=== PATIENT | female | born 1945 | race Caucasian/White ===

== ENCOUNTER 2017-08-09 07:49 | Observation (INO) | payer MEDICARE ==
[~2017-08-09 07:49] MED LIST: Acetaminophen 1,000 MG in Premix Bag 1 BAG IV SCH; Famotidine 20 MG/2 ML SDV IVPUSH SCH; Ketorolac 30 MG/ML SDV IVPUSH SCH; Scopolamine 1.5 MG Transdermal Patch TRDERM SCH
[2017-08-09] MEDS ORDERED: ceFAZolin 2 GM in Premix Bag 1 BAG IV SCH (08:00)
[2017-08-09] MEDS ORDERED: Ropivacaine 49.25 ML, Ketorolac 30 MG, EPINEPHrine 0.5 MG, cloNIDine 80 MCG in Sodium C... INJECT SCH (08:00)
[2017-08-09] MEDS ORDERED: Tranexamic Acid 4,000 MG in Sodium Chloride 0.9% 100 ML IV SCH (08:00)
[2017-08-09] MEDS: oxyCODONE ER 10 MG TAB.ER PO SCH ×3 (08:15→20:14)
[2017-08-09] MEDS: Lactated Ringers 1,000 ML IV SCH ×2 (08:17→22:42)
--- NOTE | 2017-08-09 08:34 | PCM.PREANE ---
Preanesthetic Assessment - Anesthesia/Transfusion/Family Hx Anesthesia History: Prior Anesthesia Without Reaction Family History of Anesthesia Reaction: No Transfusion History: No Prior Transfusion(s) - Review of Systems General: No Symptoms Pulmonary: No Symptoms Cardiovascular: No Symptoms Gastrointestinal: No Symptoms Neurological: No Symptoms Other: Reports: None - Physical Assessment NPO Status Date: 08/08/17 Height: 1.68 m Weight: 90.718 kg ASA Class: 3 Mental Status: Alert & Oriented x3 Airway Class: Mallampati = 1 Dentition: Reports: Partial (upper) ROM/Head Extension: Full Lungs: Clear to Auscultation, Normal Respiratory Effort Cardiovascular: Regular Rate, Regular Rhythm - Allergies Allergies/Adverse Reactions: Allergies Allergy/AdvReac Type Severity Reaction Status Date / Time Tetanus Vaccines and Toxoid Allergy Paralysis Verified 08/05/17 10:25 - Anesthesia Plan Pre-Op Medication Ordered: Other (per surgeon: iv tylenol, toradol, scop patch, oxycontin, pepcid) - Acknowledgements Anesthesia Type Planned: Spinal Pt an Appropriate Candidate for the Planned Anesthesia: Yes Alternatives and Risks of Anesthesia Discussed w Pt/Guardian: Yes Pt/Guardian Understands and Agrees with Anesthesia Plan: Yes Additional Comments: PMH: hx of PVCs causing near syncope rxed with metopralol and flecanide. QTC = 476 on 07/19, normal echo and cardiac stress test both in 2016 PLAN: spinal with sedation. 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: Musculoskeletal History: Reports: Osteoarthritis Neurological History: Reports: Vertigo Endocrine/Metabolic History: Reports: Obesity/BMI 30+ - Past Surgical History Head Surgeries/Procedures: Reports: None HEENT Surgical History: Reports: Tonsillectomy Female Surgical History: Reports: Hysterectomy Other Female Surgeries/Procedures: hx TOVT Musculoskeletal Surgical History: Reports: Arthroscopic Knee, Other (See Below) Other Musculoskeletal Surgeries/Procedures:: removal of spur to foot - SUBSTANCE USE Smoking Status *Q: Former Smoker Tobacco Use Within Last Twelve Months: No Recreational Drug Use History: No - HOME MEDS Home Medications: Home Meds Ergocalciferol (Vitamin D2) [Vitamin D2] 50,000 units PO WEEKLY 08/05/17 [ History] Flecainide [Tambocor] 100 mg PO BID 08/05/17 [History] Hydrochlorothiazide 12.5 mg PO DAILY 08/05/17 [History] Hydrocodone/Acetaminophen [[place] 7.5-325 Tablet] 1 tab PO ASDIRECTED PRN [History] Metoprolol Succinate 50 mg PO DAILY 08/05/17 [History] Naproxen 1 tab PO BID 08/05/17 [History] Omeprazole 20 mg PO DAILY 08/05/17 [History] Vitamin B Complex 1 tab PO DAILY 08/05/17 [History] - CURRENT (IN HOUSE) MEDS Current Meds: Current Medications Famotidine (Pepcid) 40 mg IVPUSH ONARRIVE [facility] Last Admin: 08/09/17 08:16 Dose: 40 mg Acetaminophen 1,000 mg/ Premix 100 mls @ 400 mls/hr IV ONARRIVE [facility] Last Admin: 08/09/17 08:15 Dose: 400 mls/hr Cefazolin Sodium/Dextrose 2 gm (/ Premix) 50 mls @ 100 mls/hr IV ONCALL [facility] Ropivacaine 49.25 ml/Ketorolac Tromethamine 30 mg/Epinephrine HCl 0.5 mg/ Clonidine HCl 80 mcg/ Sodium Chloride 100 mls @ 50 mls/sec INJECT ASDIRECTED [facility] Lactated Ringer's (Ringers, Lactated) 1,000 mls @ 100 mls/hr IV ASDIRECTED [facility] Last Admin: 08/09/17 08:17 Dose: 100 mls/hr Tranexamic Acid 4,000 mg/ (Sodium Chloride) 140 mls @ 600 mls/hr IV ASDIRECTED [facility] Ketorolac Tromethamine (Toradol) 30 mg IVPUSH ONARRIVE [facility] Last Admin: 08/09/17 08:17 Dose: 30 mg Oxycodone HCl (Oxycontin) 10 mg PO ONARRIVE [facility] Last Admin: 08/09/17 08:15 Dose: 10 mg Scopolamine (Transderm-Scop) 1.5 mg TRDERM ONARRIVE [facility] Last Admin: 08/09/17 08:14 Dose: 1.5 mg
[2017-08-09] MEDS ORDERED: ceFAZolin/Dextrose,Iso-Osmotic 2 GM/50 ML Duplex Bag IV ONE (08:48)
[2017-08-09] MEDS ORDERED: Propofol 200 MG/20 ML SDV ONE ×2 (08:49→09:04)
[2017-08-09] MEDS ORDERED: fentaNYL 100 MCG/2 ML SDV ONE (08:49)
[2017-08-09] MEDS ORDERED: Midazolam 1 MG/ML 2 ML SDV ONE (08:50)
[2017-08-09] MEDS ORDERED: ePHEDrine 50 MG/ML SDV ONE (08:53)
[2017-08-09] MEDS ORDERED: Ondansetron 4 MG/2 ML SDV ONE (08:53)
[2017-08-09] MEDS ORDERED: HYDROmorphone 2 MG/ML SDV IVPUSH ONE (10:39)
[2017-08-09] MEDS ORDERED: fentaNYL 100 MCG/2 ML SDV IVPUSH PRN (10:39)
[2017-08-09] MEDS ORDERED: Ondansetron 4 MG/2 ML SDV IV PRN (11:41)
[2017-08-09] MEDS ORDERED: diphenhydrAMINE 25 MG Cap PO PRN (11:41)
[2017-08-09] MEDS ORDERED: HYDROmorphone/Normal Saline 6 MG/30 ML PCA Vial IV PRN (11:41)
[2017-08-09] MEDS ORDERED: Aluminum Hydroxide/Magnesium Hydroxide/Simethicone Susp 30 ML Cup PO PRN (11:41)
[2017-08-09] MEDS ORDERED: oxyCODONE 5 MG Tab PO PRN (11:41)
[2017-08-09] MEDS ORDERED: Bisacodyl 10 MG Supp RECTAL PRN (11:41)
--- NOTE | 2017-08-09 11:51 | PCM.OPNOTE ---
- General Post-Op/Procedure Note Date of Surgery/Procedure: 08/09/17 Operative Procedure(s): R TKA Post-Op Diagnosis: DJD R knee Anesthesia Technique: Moderate Sedation, Spinal Primary Surgeon: Izzy Elliott Technical Photographer: Carli Jang in mLs: 50 Condition: Good Free Text/Narrative:: tt=36 min #[id number] Intake & Output 08/08/17 08/09/17 08/09/17 22:59 06:59 14:59 Output Total 100 Balance -100
--- NOTE | 2017-08-09 12:40 | PCM48HPAN ---
Post Anesthesia Note - EVALUATION WITHIN 48HRS OF ANESTHETIC Vital Signs in Normal Range: Yes Patient Participated in Evaluation: Yes Respiratory Function Stable: Yes Airway Patent: Yes Cardiovascular Function Stable: Yes Hydration Status Stable: Yes Pain Control Satisfactory: Yes Nausea and Vomiting Control Satisfactory: Yes Mental Status Recovered: Yes Resp Rate: 12
--- NOTE | 2017-08-09 12:41 | PCM.POSTAN ---
POST ANESTHESIA ASSESSMENT - MENTAL STATUS Mental Status: Alert, Oriented - RESPIRATORY Respiratory Status: Respiratory Rate WNL, Airway Patent, O2 Saturation Stable - CARDIOVASCULAR CV Status: Pulse Rate WNL, Blood Pressure Stable - GASTROINTESTINAL GI Status: No Symptoms - POST OP HYDRATION Hydration Status: Adequate & Stable
[2017-08-09] MEDS: Acetaminophen 1,000 MG in Premix Bag 1 BAG IV SCH ×2 (13:33→18:16)
--- NOTE | 2017-08-09 13:52 | PCM.CONS ---
H&P History of Present Illness - General Date of Service: 08/09/17 Admit Problem/Dx: Admission Diagnosis/Problem Admission Diagnosis/Problem Replacement of total knee joint Source of Information: Patient, Old Records (Dr Boucher and PCP records reviewed. ) History Limitations: Reports: No Limitations - History of Present Illness Initial Comments - Free Text/Narative: This 72 year old female with pmh of HTN and PVCs presented to R TKA today with Dr Elliott. Hospitalist team consulted for medical management Salma reports she is doing well. She recently arrived to Med/Surg from PACU. She currently is pain free. She denies chest pain, SOB or palpitations. No nausea or vomiting. , Anderson at bedside. She reports she was diagnosed with PVCs maybe 1 year ago and placed on medication. She also had nuclear stress test and ECHO, which were negative. EF was normal and no valvular abnormalities noted. She reports she smoked for maybe 5 years in the 1970s but otherwise none since. She reports she does drink on a daily basis, 3-5 whiskey drinks in the evening. She denies waking up feeling shaky or feeling as if she needs a drink to make her feel better. She reports drinking this way for approximately 30 years. No recreational drug use. She denies DM. - Related Data Allergies/Adverse Reactions: Allergies Allergy/AdvReac Type Severity Reaction Status Date / Time Tetanus Vaccines and Toxoid Allergy Paralysis Verified 08/05/17 10:25 Home Medications: Home Meds Ergocalciferol (Vitamin D2) [Vitamin D2] 50,000 units PO WEEKLY 08/05/17 [ History] Flecainide [Tambocor] 100 mg PO BID 08/05/17 [History] Hydrochlorothiazide 12.5 mg PO DAILY 08/05/17 [History] Hydrocodone/Acetaminophen [[place] 7.5-325 Tablet] 1 tab PO ASDIRECTED PRN [History] Metoprolol Succinate 50 mg PO DAILY 08/05/17 [History] Naproxen 1 tab PO BID 08/05/17 [History] Omeprazole 20 mg PO DAILY 08/05/17 [History] Calcium Carbonate/Vitamin D3 [Calcium 600 + Vit D Tablet] 600 mg PO BID [History] Past Medical History HEENT History: Reports: Other (See Below) Other HEENT History: has upper partial Cardiovascular History: Reports: Arrhythmia, Hypertension. Denies: Blood Clots/ VTE/DVT, CAD, High Cholesterol Respiratory History: Reports: SOB (at baseline.) Gastrointestinal History: Reports: GERD Genitourinary History: Reports: None. 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 Denies: CVA, TIA Psychiatric History: Reports: Addiction (daily alcohol use) Endocrine/Metabolic History: Reports: Obesity/BMI 30+. Denies: Diabetes, Type II, Hypothyroidism - Past Surgical History Head Surgeries/Procedures: Reports: None HEENT Surgical History: Reports: Tonsillectomy Female Surgical History: Reports: Hysterectomy Other Female Surgeries/Procedures: hx TOVT Musculoskeletal Surgical History: Reports: Arthroscopic Knee, Other (See Below) Other Musculoskeletal Surgeries/Procedures:: removal of spur to foot Social & Family History - Tobacco Use Smoking Status *Q: Former Smoker Years of Tobacco use: 10 Used Tobacco, but Quit: Yes Month/Year Tobacco Last Used: quit smoking 1984 - Alcohol Use Alcohol Use History: Yes Days Per Week of Alcohol Use: 7 Number of Drinks Per Day: 5 Total Drinks Per Week: 35 Alcohol Use Frequency: Daily - Recreational Drug Use Recreational Drug Use: No - Living Situation & Occupation Living situation: Reports: H&P Review of Systems - Review of Systems: Review Of Systems: See Below General: Reports: No Symptoms. Denies: Fever, Chills, Malaise, Weakness HEENT: Reports: No Symptoms. Denies: Headaches, Sinus Congestion, Vertigo Pulmonary: Reports: No Symptoms. Denies: Shortness of Breath, Cough, Sputum Cardiovascular: Reports: No Symptoms. Denies: Chest Pain, Edema Gastrointestinal: Reports: No Symptoms. Denies: Abdominal Pain, Nausea, Vomiting Genitourinary: Reports: No Symptoms. Denies: Dysuria, Frequency, Burning Psychiatric: Reports: No Symptoms Hematologic/Lymphatic: Reports: No Symptoms Exam - Exam Exam: See Below - Vital Signs Vital Signs: Last Vital Signs Temp 97 F 08/09/17 13:29 Pulse 61 08/09/17 13:29 Resp 16 08/09/17 13:29 BP 134/70 08/09/17 13:29 Pulse Ox 97 08/09/17 13:29 Weight: 90.718 kg - Exam Quality Assessment: Supplemental Oxygen, Urinary Catheter, DVT Prophylaxis General: Alert, Oriented, Cooperative HEENT: Conjunctiva Clear, Mucosa Moist & [place], Posterior Pharynx Clear Neck: Supple, Trachea Midline, 2 Lungs: Clear to Auscultation, Normal Respiratory Effort Cardiovascular: Regular Rate, Regular Rhythm, Normal S1, Normal S2. No: Systolic Murmur GI/Abdominal Exam: Normal Bowel Sounds, Soft, Non-Tender, No Distention Back Exam: Normal Inspection, Full Range of Motion, NT Extremities: Normal Inspection, Normal Range of Motion, No Pedal Edema, Normal Capillary Refill Neuro Extensive - Mental Status: Alert, Oriented x3 Neuro Extensive - Motor, Sensory, Reflexes: CN II-XII Intact Psychiatric: Alert, Normal Affect, Normal Mood - Patient Data Lab Results Last 24 hrs: Laboratory Results - last 24 hr 08/09/17 Range/Units 08:30 Blood Type A POSITIVE Antibody Screen NEGATIVE Result Diagrams: 08/09/17 13:48 08/09/17 13:48 Consult PN Assessment/Plan Procedures: Procedures MRI JNT OF LWR EXTRE W/O DYE (07/06/17) OFFICE/OUTPATIENT VISIT NEW (06/22/17) X-RAY EXAM KNEE 4 OR MORE (06/22/17) (1) S/P total knee arthroplasty SNOMED Code(s): 8215462334423, 788431940, 7186693254624 Code(s): Z96.659 - PRESENCE OF UNSPECIFIED ARTIFICIAL KNEE JOINT Current Visit: Yes Qualifiers: Laterality: right Qualified Code(s): Z96.651 - Presence of right artificial knee joint (2) PVC (premature ventricular contraction) SNOMED Code(s): 71856253 Code(s): I49.3 - VENTRICULAR PREMATURE DEPOLARIZATION Current Visit: Yes (3) Alcohol use SNOMED Code(s): 152055194 Code(s): Z78.9 - OTHER SPECIFIED HEALTH STATUS Current Visit: Yes (4) GERD (gastroesophageal reflux disease) SNOMED Code(s): 843229265 Code(s): K21.9 - GASTRO-ESOPHAGEAL REFLUX DISEASE WITHOUT ESOPHAGITIS Current Visit: Yes Qualifiers: Esophagitis presence: esophagitis presence not specified Qualified Code(s) : K21.9 - Gastro-esophageal reflux disease without esophagitis Problem List Initiated/Reviewed/Updated: Yes My Orders Last 24 Hours: My Active Orders 08/09/17 13:29 BASIC METABOLIC PANEL,BMP [CHEM] Routine CBC WITH AUTO DIFF [HEME] Routine MG [MAGNESIUM] [CHEM] Routine 08/09/17 13:32 Telemetry Monitoring [Cardiac Monitoring] [RC] . DIRECTED Plan: this 72 joan old female admitted with R TKA. Hospitalist service consulted for medical management. 1. S/P R TKA: Per Orthopedics. 2. Hx PVCs: Continue Flecanide and Metoprolol. WIll monitor electrolytes and monitor on telemetry overnight. Will replace potassium and Magnesium this afternoon. BUN and Cr at baseline. Monitor in am as well. 3. Alcohol abuse: Will place on CIWA protocol with Ativan as needed alcohol withdrawl. Supplement with Thiamine and Folic acid daily. Encouraged her not to drink with pain medications or NSAIDs due to sedation risk and bleeding risks. VTE prophylaxis: Recommend with deemed appropriate by Orthopedics.
--- NOTE | 2017-08-09 14:43 | CR ---
EXAMINATION: Right knee HISTORY: Arthroplasty COMPARISON: 06/22/2017 TECHNIQUE: 2 views FINDINGS/IMPRESSION: Right total knee hardware demonstrated in good position and alignment. Postopera tive soft tissue changes noted.
[2017-08-09] MEDS ORDERED: Potassium Chloride 20 MEQ Tab.ER PO ONE (15:12)
[2017-08-09] MEDS ORDERED: Magnesium Sulfate/Water 2 GM in Premix Bag 1 BAG IV ONE (15:13)
[2017-08-09] MEDS ORDERED: LORazepam 2 MG/ML SDV IVPUSH PRN (15:47)
[2017-08-09] MEDS: Ketorolac 15 MG/ML SDV IVPUSH SCH ×2 (17:05→22:41)
[2017-08-09] MEDS: ceFAZolin 2 GM in Premix Bag 1 BAG IV SCH (17:16)
[2017-08-09] MEDS: Docusate Sodium 100 MG Cap PO SCH (20:12)
[2017-08-10] MEDS: ceFAZolin 2 GM in Premix Bag 1 BAG IV SCH (01:35)
[2017-08-10] MEDS: Acetaminophen 1,000 MG in Premix Bag 1 BAG IV SCH (01:37)
[2017-08-10] MEDS: Ketorolac 15 MG/ML SDV IVPUSH SCH (05:11)
[2017-08-10] MEDS ORDERED: HYDROmorphone 2 MG/ML SDV IVPUSH PRN (08:00)
[2017-08-10] MEDS: Omeprazole 20 MG Cap.CR PO SCH (08:30)
[2017-08-10] MEDS: Hydrochlorothiazide 12.5 MG Cap PO SCH (08:31)
[2017-08-10] MEDS: Aspirin 325 MG Tab.EC PO SCH ×2 (08:31→23:20)
[2017-08-10] MEDS: Docusate Sodium 100 MG Cap PO SCH ×2 (08:31→23:20)
[2017-08-10] MEDS: oxyCODONE ER 10 MG TAB.ER PO SCH (08:31)
[2017-08-10] MEDS: Metoprolol Succinate 50 MG Tab.ER PO SCH (08:32)
--- NOTE | 2017-08-10 08:37 | PCM.CONSN ---
- General Info Date of Service: 08/10/17 Admission Dx/Problem (Free Text): Admission Diagnosis/Problem Admission Diagnosis/Problem Replacement of total knee joint Subjective Update: DOing well this morning, pain controlled. No chest pain or SOB. Reports seeing a mindy in her room, but then realizing it was nursing staff. No other concerns. Functional Status: Reports: Pain Controlled, Tolerating Diet, Ambulating - Review of Systems General: Reports: No Symptoms. Denies: Fever, Weakness, Fatigue HEENT: Reports: No Symptoms. Denies: Headaches, Sore Throat, Visual Changes Pulmonary: Reports: No Symptoms. Denies: Shortness of Breath Cardiovascular: Reports: No Symptoms. Denies: Chest Pain Gastrointestinal: Reports: No Symptoms. Denies: Abdominal Pain, Flatus, Nausea , Vomiting Musculoskeletal: Reports: Joint Pain (Some knee pain but tolerable. ) Psychiatric: Reports: Hallucinations (easily redirected noticed them mainly last night when nursing staff was in room. ) - Patient Data Vitals - Most Recent: Last Vital Signs Temp 98.6 F 08/10/17 08:00 Pulse 71 08/10/17 08:32 Resp 17 08/10/17 08:00 BP 158/78 H 08/10/17 08:32 Pulse Ox 94 L 08/10/17 08:00 Weight - Most Recent: 90.718 kg I&O - Last 24 Hours: Intake & Output 08/09/17 08/10/17 08/10/17 22:59 06:59 14:59 Intake Total 2085 1300 Output Total 100 550 Balance 1985 750 Lab Results Last 24 Hours: Laboratory Results - last 24 hr 08/09/17 08/09/17 08/09/17 Range/Units 08:30 13:48 13:48 WBC 5.14 (4.0-11.0) K/uL RBC 3.66 L (4.30-5.90) M/uL Hgb 12.0 (12.0-16.0) g/dL Hct 36.2 (36.0-46.0) % MCV 98.9 H (80.0-98.0) fL MCH 32.8 H (27.0-32.0) pg MCHC 33.1 (31.0-37.0) g/dL RDW Std Deviation 47.5 (28.0-62.0) fl RDW Coeff of Jeff 13 (11.0-15.0) % Plt Count 182 (150-400) K/uL MPV 10.10 (7.40-12.00) fL Neut % (Auto) 65.4 (48.0-80.0) % Lymph % (Auto) 19.5 (16.0-40.0) % [place] % (Auto) 12.8 (0.0-15.0) % Eos % (Auto) 1.9 (0.0-7.0) % Baso % (Auto) 0.4 (0.0-1.5) % Neut # (Auto) 3.4 (1.4-5.7) K/uL Lymph # (Auto) 1.0 (0.6-2.4) K/uL [place] # (Auto) 0.7 (0.0-0.8) K/uL Eos # (Auto) 0.1 (0.0-0.7) K/uL Baso # (Auto) 0.0 (0.0-0.1) K/uL Nucleated RBC % 0.0 /100WBC Nucleated RBCs # 0 K/uL Sodium 139 (136-145) mmol/L Potassium 3.4 L (3.5-5.1) mmol/L Chloride 101 (98-107) mmol/L Carbon Dioxide 31.4 (21.0-32.0) mmol/L BUN 20 H (7.0-18.0) mg/dL Creatinine 1.2 H (0.6-1.0) mg/dL Est Cr Clr Drug Dosing 38.50 mL/min Estimated GFR (MDRD) 43.9 ml/min Glucose 123 H (74-106) mg/dL Calcium 8.4 L (8.5-10.1) mg/dL Magnesium 1.7 L (1.8-2.4) mg/dL Blood Type A POSITIVE Antibody Screen NEGATIVE 08/10/17 08/10/17 Range/Units 05:57 05:57 WBC (4.0-11.0) K/uL RBC (4.30-5.90) M/uL Hgb 11.1 L (12.0-16.0) g/dL Hct 33.7 L (36.0-46.0) % MCV (80.0-98.0) fL MCH (27.0-32.0) pg MCHC (31.0-37.0) g/dL RDW Std Deviation (28.0-62.0) fl RDW Coeff of Jeff (11.0-15.0) % Plt Count (150-400) K/uL MPV (7.40-12.00) fL Neut % (Auto) (48.0-80.0) % Lymph % (Auto) (16.0-40.0) % [place] % (Auto) (0.0-15.0) % Eos % (Auto) (0.0-7.0) % Baso % (Auto) (0.0-1.5) % Neut # (Auto) (1.4-5.7) K/uL Lymph # (Auto) (0.6-2.4) K/uL [place] # (Auto) (0.0-0.8) K/uL Eos # (Auto) (0.0-0.7) K/uL Baso # (Auto) (0.0-0.1) K/uL Nucleated RBC % /100WBC Nucleated RBCs # K/uL Sodium 138 (136-145) mmol/L Potassium 3.8 (3.5-5.1) mmol/L Chloride 103 (98-107) mmol/L Carbon Dioxide 29.9 (21.0-32.0) mmol/L BUN 18 (7.0-18.0) mg/dL Creatinine 1.3 H (0.6-1.0) mg/dL Est Cr Clr Drug Dosing 35.54 mL/min Estimated GFR (MDRD) 40.0 ml/min Glucose 114 H (74-106) mg/dL Calcium 8.1 L (8.5-10.1) mg/dL Magnesium 2.1 (1.8-2.4) mg/dL Blood Type Antibody Screen Med Orders - Current: Current Medications Al Hydroxide/Mg Hydroxide (Mag-Al Plus) 30 ml PO Q4H PRN PRN Reason: indigestion Aspirin (Ecotrin) 325 mg PO BID [facility] Last Admin: 08/10/17 08:31 Dose: 325 mg Bisacodyl (Dulcolax) 10 mg RECTAL DAILY PRN PRN Reason: Constipation Diphenhydramine HCl (Benadryl) 25 - 50 mg PO Q6H PRN PRN Reason: Itching Docusate Sodium (Colace) 100 mg PO BID [facility] Last Admin: 08/10/17 08:31 Dose: 100 mg Famotidine (Pepcid) 40 mg IVPUSH ONARRIVE [facility] Last Admin: 08/09/17 08:16 Dose: 40 mg Famotidine (Pepcid) 40 mg PO DAILY [facility] Last Admin: 08/10/17 08:30 Dose: 40 mg Fentanyl (Sublimaze) 50 mcg IVPUSH Q5M PRN PRN Reason: Pain (severe 7-10) Stop: 08/10/17 10:39 Hydrochlorothiazide (Hydrochlorothiazide) 12.5 mg PO DAILY [facility] Last Admin: 08/10/17 08:31 Dose: 12.5 mg Hydromorphone HCl (Dilaudid) 0.5 - 1 mg IVPUSH Q3H PRN PRN Reason: Pain Acetaminophen 1,000 mg/ Premix 100 mls @ 400 mls/hr IV ONARRIVE [facility] Last Admin: 08/09/17 08:15 Dose: 400 mls/hr Cefazolin Sodium/Dextrose 2 gm (/ Premix) 50 mls @ 100 mls/hr IV ONCALL [facility] Ropivacaine 49.25 ml/Ketorolac Tromethamine 30 mg/Epinephrine HCl 0.5 mg/ Clonidine HCl 80 mcg/ Sodium Chloride 100 mls @ 50 mls/sec INJECT ASDIRECTED [facility] Lactated Ringer's (Ringers, Lactated) 1,000 mls @ 100 mls/hr IV ASDIRECTED [facility] Last Admin: 08/09/17 22:42 Dose: 100 mls/hr Tranexamic Acid 4,000 mg/ (Sodium Chloride) 140 mls @ 600 mls/hr IV ASDIRECTED [facility] Ketorolac Tromethamine (Toradol) 30 mg IVPUSH ONARRIVE [facility] Last Admin: 08/09/17 08:17 Dose: 30 mg Lorazepam (Ativan) 0 mg IVPUSH Q4H PRN; Protocol PRN Reason: CIWAA Metoprolol Succinate (Toprol Xl) 50 mg PO DAILY [facility] Last Admin: 08/10/17 08:32 Dose: 50 mg Omeprazole (Omeprazole) 20 mg PO DAILY [facility] Last Admin: 08/10/17 08:30 Dose: 20 mg Ondansetron HCl (Zofran) 4 mg IV Q6HR PRN PRN Reason: NAUSEA/VOMITING Oxycodone HCl (Oxycontin) 10 mg PO ONARRIVE [facility] Last Admin: 08/09/17 08:15 Dose: 10 mg Oxycodone HCl (Oxycodone) 5 - 10 mg PO Q4H PRN PRN Reason: Pain Oxycodone HCl (Oxycontin) 10 mg PO Q12HR [facility] Last Admin: 08/10/17 08:31 Dose: 10 mg Oxycodone/Acetaminophen (Percocet 325-5 Mg) 1 - 2 tab PO Q4H PRN PRN Reason: Pain Scopolamine (Transderm-Scop) 1.5 mg TRDERM ONARRIVE [facility] Last Admin: 08/09/17 08:14 Dose: 1.5 mg Discontinued Medications Cefazolin Sodium/Dextrose (Ancef) Confirm Administered Dose 2 gm IV .STK-MED ONE Stop: 08/09/17 08:49 Ephedrine Sulfate (Ephedrine Sulfate) Confirm Administered Dose 50 mg .ROUTE .STK-MED ONE Stop: 08/09/17 08:54 Fentanyl (Sublimaze) Confirm Administered Dose 100 mcg .ROUTE .STK-MED ONE Stop: 08/09/17 08:50 Hydromorphone HCl (Dilaudid) 0 mg IVPUSH ONETIME ONE Stop: 08/09/17 10:40 Last Admin: 08/09/17 13:34 Dose: Not Given Hydromorphone HCl (Dilaudid Horticultural Nursery Assistant 6 Mg In Ns 30 Ml) 6 mg IV ASDIRECTED PRN; Protocol PRN Reason: Pain Stop: 08/10/17 08:00 Last Admin: 08/09/17 12:11 Dose: 6 mg Acetaminophen 1,000 mg/ Premix 100 mls @ 400 mls/hr IV Q6H [facility] Stop: 08/10/17 01:14 Last Admin: 08/10/17 01:37 Dose: 400 mls/hr Cefazolin Sodium/Dextrose 2 gm (/ Premix) 50 mls @ 100 mls/hr IV Q8H [facility] Stop: 08/10/17 01:29 Last Admin: 08/10/17 01:35 Dose: 100 mls/hr Magnesium Sulfate 2 gm/ Premix 50 mls @ 50 mls/hr IV ONETIME ONE Stop: 08/09/17 16:12 Last Admin: 08/09/17 15:30 Dose: 50 mls/hr Ketorolac Tromethamine (Toradol) 15 mg IVPUSH Q6H [facility] Stop: 08/10/17 05:00 Last Admin: 08/10/17 05:11 Dose: 15 mg Midazolam HCl (Versed 1 Mg/Ml) Confirm Administered Dose 2 mg .ROUTE .STK-MED ONE Stop: 08/09/17 08:51 Ondansetron HCl (Zofran) Confirm Administered Dose 4 mg .ROUTE .STK-MED ONE Stop: 08/09/17 08:54 Potassium Chloride (Klor-Con M20) 40 meq PO ONETIME ONE Stop: 08/09/17 15:13 Last Admin: 08/09/17 15:29 Dose: 40 meq Propofol (Diprivan 20 Ml) Confirm Administered Dose 400 mg .ROUTE .STK-MED ONE Stop: 08/09/17 08:50 Propofol (Diprivan 20 Ml) Confirm Administered Dose 200 mg .ROUTE .STK-MED ONE Stop: 08/09/17 09:05 Tranexamic Acid (Cyklokapron) Confirm Administered Dose 4,000 mg .ROUTE .STK- MED ONE Stop: 08/09/17 08:52 - Exam General: Alert, Oriented, Cooperative, No Acute Distress Lungs: Clear to Auscultation, Normal Respiratory Effort Cardiovascular: Regular Rate, Regular Rhythm GI/Abdominal Exam: Normal Bowel Sounds, Soft, Non-Tender, No Organomegaly, No Distention, No Abnormal Bruit, No Mass, Pelvis Stable Extremities: Normal Inspection, Normal Range of Motion, Non-Tender, No Pedal Edema, Normal Capillary Refill Wound/Incisions: Dressing Dry and Intact Neurological: No New Focal Deficit Psy/Mental Status: Alert, Normal Affect, Normal Mood Consult PN Assessment/Plan Procedures: Procedures MRI JNT OF LWR EXTRE W/O DYE (07/06/17) OFFICE/OUTPATIENT VISIT NEW (06/22/17) X-RAY EXAM KNEE 4 OR MORE (06/22/17) (1) S/P total knee arthroplasty SNOMED Code(s): 0162863053747, 635005691, 0455310741908 Code(s): Z96.659 - PRESENCE OF UNSPECIFIED ARTIFICIAL KNEE JOINT Current Visit: Yes Qualifiers: Laterality: right Qualified Code(s): Z96.651 - Presence of right artificial knee joint (2) PVC (premature ventricular contraction) SNOMED Code(s): 04280719 Code(s): I49.3 - VENTRICULAR PREMATURE DEPOLARIZATION Current Visit: Yes (3) Alcohol use SNOMED Code(s): 004472778 Code(s): Z78.9 - OTHER SPECIFIED HEALTH STATUS Current Visit: Yes (4) GERD (gastroesophageal reflux disease) SNOMED Code(s): 078555622 Code(s): K21.9 - GASTRO-ESOPHAGEAL REFLUX DISEASE WITHOUT ESOPHAGITIS Current Visit: Yes Qualifiers: Esophagitis presence: esophagitis presence not specified Qualified Code(s) : K21.9 - Gastro-esophageal reflux disease without esophagitis Problem List Initiated/Reviewed/Updated: Yes My Orders Last 24 Hours: My Active Orders 08/09/17 13:32 Telemetry Monitoring [Cardiac Monitoring] [RC] Q8H 08/09/17 15:47 CIWAA Assessment [RC] Q4H LORazepam [Ativan] See Protocol IVPUSH Q4H PRN 08/10/17 08:33 Rafter Cutting Machine Operator Discontinue [Cardiac Monitoring Discontinue] [RC] Click to Edit Plan: this 72 joan old female admitted with R TKA. Hospitalist service consulted for medical management. 1. S/P R TKA: Per Orthopedics. 2. Hx PVCs: Continue Flecanide and Metoprolol. Electrolytes stable. Will DC telemetry. No ectopy overnight. 3. Alcohol abuse: Stable. Max CIWA 3, no Ativan needed. Continue to monitor. CIWA protocol with Ativan as needed alcohol withdrawl. Supplement with Thiamine and Folic acid daily. VTE prophylaxis: Recommend with deemed appropriate by Orthopedics.
[2017-08-10] MEDS ORDERED: Famotidine 20 MG Tab PO SCH (09:00)
[2017-08-10] MEDS ORDERED: Sodium Chloride 0.9% 10 ML Syringe FLUSH PRN (09:18)
[2017-08-10] MEDS ORDERED: Sodium Chloride 0.9% 2.5 ML Syringe FLUSH PRN (09:18)
--- NOTE | 2017-08-10 09:23 | PCM.SURGPN ---
<Carli Jang R - Last Filed: 08/10/17 09:18> - General Info Date of Service: 08/10/17 Date of Surgery/Procedure: 08/09/17 POD#: 1 Functional Status: Reports: Pain Controlled - Review of Systems General: Reports: No Symptoms Pulmonary: Reports: No Symptoms. Denies: Shortness of Breath Cardiovascular: Reports: No Symptoms. Denies: Chest Pain, Palpitations Gastrointestinal: Reports: No Symptoms. Denies: Nausea, Vomiting Systems Review Comment:: pt up to chair for breakfast no specific concerns today pain controlled dressing was reinforced overnight - Patient Data Vitals - Most Recent: Last Vital Signs Temp 98.6 F 08/10/17 08:00 Pulse 71 08/10/17 08:32 Resp 17 08/10/17 08:00 BP 158/78 H 08/10/17 08:32 Pulse Ox 94 L 08/10/17 08:00 Weight - Most Recent: 90.718 kg I&O - Last 24 Hours: Intake & Output 08/09/17 08/10/17 08/10/17 22:59 06:59 14:59 Intake Total 2085 1300 Output Total 100 550 Balance 1985 750 Lab Results Last 24 Hrs: Laboratory Results - last 24 hr 08/09/17 08/09/17 08/09/17 Range/Units 08:30 13:48 13:48 WBC 5.14 (4.0-11.0) K/uL RBC 3.66 L (4.30-5.90) M/uL Hgb 12.0 (12.0-16.0) g/dL Hct 36.2 (36.0-46.0) % MCV 98.9 H (80.0-98.0) fL MCH 32.8 H (27.0-32.0) pg MCHC 33.1 (31.0-37.0) g/dL RDW Std Deviation 47.5 (28.0-62.0) fl RDW Coeff of Jeff 13 (11.0-15.0) % Plt Count 182 (150-400) K/uL MPV 10.10 (7.40-12.00) fL Neut % (Auto) 65.4 (48.0-80.0) % Lymph % (Auto) 19.5 (16.0-40.0) % [place] % (Auto) 12.8 (0.0-15.0) % Eos % (Auto) 1.9 (0.0-7.0) % Baso % (Auto) 0.4 (0.0-1.5) % Neut # (Auto) 3.4 (1.4-5.7) K/uL Lymph # (Auto) 1.0 (0.6-2.4) K/uL [place] # (Auto) 0.7 (0.0-0.8) K/uL Eos # (Auto) 0.1 (0.0-0.7) K/uL Baso # (Auto) 0.0 (0.0-0.1) K/uL Nucleated RBC % 0.0 /100WBC Nucleated RBCs # 0 K/uL Sodium 139 (136-145) mmol/L Potassium 3.4 L (3.5-5.1) mmol/L Chloride 101 (98-107) mmol/L Carbon Dioxide 31.4 (21.0-32.0) mmol/L BUN 20 H (7.0-18.0) mg/dL Creatinine 1.2 H (0.6-1.0) mg/dL Est Cr Clr Drug Dosing 38.50 mL/min Estimated GFR (MDRD) 43.9 ml/min Glucose 123 H (74-106) mg/dL Calcium 8.4 L (8.5-10.1) mg/dL Magnesium 1.7 L (1.8-2.4) mg/dL Blood Type A POSITIVE Antibody Screen NEGATIVE 08/10/17 08/10/17 Range/Units 05:57 05:57 WBC (4.0-11.0) K/uL RBC (4.30-5.90) M/uL Hgb 11.1 L (12.0-16.0) g/dL Hct 33.7 L (36.0-46.0) % MCV (80.0-98.0) fL MCH (27.0-32.0) pg MCHC (31.0-37.0) g/dL RDW Std Deviation (28.0-62.0) fl RDW Coeff of Jeff (11.0-15.0) % Plt Count (150-400) K/uL MPV (7.40-12.00) fL Neut % (Auto) (48.0-80.0) % Lymph % (Auto) (16.0-40.0) % [place] % (Auto) (0.0-15.0) % Eos % (Auto) (0.0-7.0) % Baso % (Auto) (0.0-1.5) % Neut # (Auto) (1.4-5.7) K/uL Lymph # (Auto) (0.6-2.4) K/uL [place] # (Auto) (0.0-0.8) K/uL Eos # (Auto) (0.0-0.7) K/uL Baso # (Auto) (0.0-0.1) K/uL Nucleated RBC % /100WBC Nucleated RBCs # K/uL Sodium 138 (136-145) mmol/L Potassium 3.8 (3.5-5.1) mmol/L Chloride 103 (98-107) mmol/L Carbon Dioxide 29.9 (21.0-32.0) mmol/L BUN 18 (7.0-18.0) mg/dL Creatinine 1.3 H (0.6-1.0) mg/dL Est Cr Clr Drug Dosing 35.54 mL/min Estimated GFR (MDRD) 40.0 ml/min Glucose 114 H (74-106) mg/dL Calcium 8.1 L (8.5-10.1) mg/dL Magnesium 2.1 (1.8-2.4) mg/dL Blood Type Antibody Screen Med Orders - Current: Current Medications Al Hydroxide/Mg Hydroxide (Mag-Al Plus) 30 ml PO Q4H PRN PRN Reason: indigestion Aspirin (Ecotrin) 325 mg PO BID [facility] Last Admin: 08/10/17 08:31 Dose: 325 mg Bisacodyl (Dulcolax) 10 mg RECTAL DAILY PRN PRN Reason: Constipation Diphenhydramine HCl (Benadryl) 25 - 50 mg PO Q6H PRN PRN Reason: Itching Docusate Sodium (Colace) 100 mg PO BID [facility] Last Admin: 08/10/17 08:31 Dose: 100 mg Famotidine (Pepcid) 40 mg IVPUSH ONARRIVE [facility] Last Admin: 08/09/17 08:16 Dose: 40 mg Famotidine (Pepcid) 40 mg PO DAILY [facility] Last Admin: 08/10/17 08:30 Dose: 40 mg Fentanyl (Sublimaze) 50 mcg IVPUSH Q5M PRN PRN Reason: Pain (severe 7-10) Stop: 08/10/17 10:39 Hydrochlorothiazide (Hydrochlorothiazide) 12.5 mg PO DAILY [facility] Last Admin: 08/10/17 08:31 Dose: 12.5 mg Hydromorphone HCl (Dilaudid) 0.5 - 1 mg IVPUSH Q3H PRN PRN Reason: Pain Cefazolin Sodium/Dextrose 2 gm (/ Premix) 50 mls @ 100 mls/hr IV ONCALL [facility] Ropivacaine 49.25 ml/Ketorolac Tromethamine 30 mg/Epinephrine HCl 0.5 mg/ Clonidine HCl 80 mcg/ Sodium Chloride 100 mls @ 50 mls/sec INJECT ASDIRECTED [facility] Lactated Ringer's (Ringers, Lactated) 1,000 mls @ 100 mls/hr IV ASDIRECTED [facility] Last Admin: 08/09/17 22:42 Dose: 100 mls/hr Tranexamic Acid 4,000 mg/ (Sodium Chloride) 140 mls @ 600 mls/hr IV ASDIRECTED [facility] Ketorolac Tromethamine (Toradol) 30 mg IVPUSH ONARRIVE [facility] Last Admin: 08/09/17 08:17 Dose: 30 mg Lorazepam (Ativan) 0 mg IVPUSH Q4H PRN; Protocol PRN Reason: CIWAA Metoprolol Succinate (Toprol Xl) 50 mg PO DAILY [facility] Last Admin: 08/10/17 08:32 Dose: 50 mg Omeprazole (Omeprazole) 20 mg PO DAILY [facility] Last Admin: 08/10/17 08:30 Dose: 20 mg Ondansetron HCl (Zofran) 4 mg IV Q6HR PRN PRN Reason: NAUSEA/VOMITING Oxycodone HCl (Oxycontin) 10 mg PO ONARRIVE [facility] Last Admin: 08/09/17 08:15 Dose: 10 mg Oxycodone HCl (Oxycodone) 5 - 10 mg PO Q4H PRN PRN Reason: Pain Oxycodone HCl (Oxycontin) 10 mg PO Q12HR [facility] Last Admin: 08/10/17 08:31 Dose: 10 mg Oxycodone/Acetaminophen (Percocet 325-5 Mg) 1 - 2 tab PO Q4H PRN PRN Reason: Pain Scopolamine (Transderm-Scop) 1.5 mg [facility] ONARRIVE [facility] Last Admin: 08/09/17 08:14 Dose: 1.5 mg Discontinued Medications Cefazolin Sodium/Dextrose (Ancef) Confirm Administered Dose 2 gm IV .STK-MED ONE Stop: 08/09/17 08:49 Ephedrine Sulfate (Ephedrine Sulfate) Confirm Administered Dose 50 mg .ROUTE .STK-MED ONE Stop: 08/09/17 08:54 Fentanyl (Sublimaze) Confirm Administered Dose 100 mcg .ROUTE .STK-MED ONE Stop: 08/09/17 08:50 Hydromorphone HCl (Dilaudid) 0 mg IVPUSH ONETIME ONE Stop: 08/09/17 10:40 Last Admin: 08/09/17 13:34 Dose: Not Given Hydromorphone HCl (Dilaudid Lumber Racker 6 Mg In Ns 30 Ml) 6 mg IV ASDIRECTED PRN; Protocol PRN Reason: Pain Stop: 08/10/17 08:00 Last Admin: 08/09/17 12:11 Dose: 6 mg Acetaminophen 1,000 mg/ Premix 100 mls @ 400 mls/hr IV ONARRIVE [facility] Last Admin: 08/09/17 08:15 Dose: 400 mls/hr Acetaminophen 1,000 mg/ Premix 100 mls @ 400 mls/hr IV Q6H [facility] Stop: 08/10/17 01:14 Last Admin: 08/10/17 01:37 Dose: 400 mls/hr Cefazolin Sodium/Dextrose 2 gm (/ Premix) 50 mls @ 100 mls/hr IV Q8H [facility] Stop: 08/10/17 01:29 Last Admin: 08/10/17 01:35 Dose: 100 mls/hr Magnesium Sulfate 2 gm/ Premix 50 mls @ 50 mls/hr IV ONETIME ONE Stop: 08/09/17 16:12 Last Admin: 08/09/17 15:30 Dose: 50 mls/hr Ketorolac Tromethamine (Toradol) 15 mg IVPUSH Q6H [facility] Stop: 08/10/17 05:00 Last Admin: 08/10/17 05:11 Dose: 15 mg Midazolam HCl (Versed 1 Mg/Ml) Confirm Administered Dose 2 mg .ROUTE .STK-MED ONE Stop: 08/09/17 08:51 Ondansetron HCl (Zofran) Confirm Administered Dose 4 mg .ROUTE .STK-MED ONE Stop: 08/09/17 08:54 Potassium Chloride (Klor-Con M20) 40 meq PO ONETIME ONE Stop: 08/09/17 15:13 Last Admin: 08/09/17 15:29 Dose: 40 meq Propofol (Diprivan 20 Ml) Confirm Administered Dose 400 mg .ROUTE .STK-MED ONE Stop: 08/09/17 08:50 Propofol (Diprivan 20 Ml) Confirm Administered Dose 200 mg .ROUTE .STK-MED ONE Stop: 08/09/17 09:05 Tranexamic Acid (Cyklokapron) Confirm Administered Dose 4,000 mg .ROUTE .STK- MED ONE Stop: 08/09/17 08:52 - Exam Wound/Incisions: Healing Well, Drainage (sanguinous drainage from inferior aspect of wound). No: Erythema General: Alert, Oriented Cardiovascular: Regular Rate, Regular Rhythm Extremities: No Pedal Edema, Other (exam RLE - incision clean/jolynn intact/ sanguinous drainage from inferior wound, at/ehl/gastroc 5/5, dp 2+, sensation intact distally) Physical Findings Comment:: vss, afeb uo 820mL hgb 11.1 - Problem List Review Problem List Initiated/Reviewed/Updated: Yes - My Orders Last 24 Hours: Active Orders 24 hr Category Date Time Status Activity as Tolerated [RC] .Routine Care 08/09/17 11:41 Active CIWAA Assessment [RC] Q4H Care 08/09/17 15:47 Active Dressing Change [Wound Care] [RC] Q12H Care 08/09/17 11:41 Active Intake and Output [RC] Q12H Care 08/09/17 11:40 Active Neurovascular Check [RC] Q2HR Care 08/09/17 11:40 Active Notify Provider Consults [RC] ASDIRECTED Care 08/09/17 11:48 Active Notify Provider Vital Signs [RC] ASDIRECTED Care 08/09/17 11:41 Active RT Incentive Spirometry [RC] ASDIRECTED Care 08/09/17 11:40 Active Remove Woodall Catheter [Urinary Catheter Removal] [RC] Care 08/10/17 09:18 Ordered Per Unit Routine Dental Hygiene Professor Discontinue [Cardiac Monitoring Care 08/10/17 08:33 Active Discontinue] [RC] Click to Edit Telemetry Monitoring [Cardiac Monitoring] [RC] Q8H Care 08/09/17 13:32 Active Vital Signs [RC] Q4H Care 08/09/17 11:40 Active Consult to Physician [CONS] Routine Cons 08/09/17 11:39 Active PT Evaluation and Treatment [CONS] Routine Cons 08/09/17 15:34 Active HEMOGLOBIN/HEMATOCRIT,HH [HEME] DAILY Lab 08/11/17 06:00 Ordered HEMOGLOBIN/HEMATOCRIT,HH [HEME] DAILY Lab 08/12/17 06:00 Ordered Acetaminophen/oxyCODONE [Percocet 325-5 MG] Med 08/10/17 08:00 Active 1 - 2 tab PO Q4H PRN Alum Hydrox/Mag Hydrox/Simeth [Mag-Al Plus] Med 08/09/17 11:41 Active 30 ml PO Q4H PRN Aspirin [Ecotrin] Med 08/10/17 09:00 Active 325 mg PO BID Bisacodyl [Dulcolax] Med 08/09/17 11:41 Active 10 mg RECTAL DAILY PRN Docusate Sodium [Colace] Med 08/09/17 21:00 Active 100 mg PO BID Famotidine [Pepcid] Med 08/10/17 09:00 Active 40 mg PO DAILY HYDROmorphone [Dilaudid] Med 08/10/17 08:00 Active 0.5 - 1 mg IVPUSH Q3H PRN Hydrochlorothiazide Med 08/10/17 09:00 Active 12.5 mg PO DAILY LORazepam [Ativan] Med 08/09/17 15:47 Active See Protocol IVPUSH Q4H PRN Metoprolol Succinate [Toprol XL] Med 08/10/17 09:00 Active 50 mg PO DAILY Omeprazole Med 08/10/17 09:00 Active 20 mg PO DAILY Ondansetron [Zofran] Med 08/09/17 11:41 Active 4 mg IV Q6HR PRN Sodium Chloride 0.9% [Saline Flush] Med 08/10/17 09:18 Ordered 10 ml FLUSH ASDIRECTED PRN Sodium Chloride 0.9% [Saline Flush] Med 08/10/17 09:18 Ordered 2.5 ml FLUSH ASDIRECTED PRN diphenhydrAMINE [Benadryl] Med 08/09/17 11:41 Active 25 - 50 mg PO Q6H PRN fentaNYL [Sublimaze] Med 08/09/17 10:39 Active 50 mcg IVPUSH Q5M PRN oxyCODONE Med 08/09/17 11:41 Active 5 - 10 mg PO Q4H PRN oxyCODONE ER [OxyCONTIN] Med 08/09/17 21:00 Active 10 mg PO Q12HR Convert IV to Saline Lock [OM.PC] Routine Oth 08/10/17 09:18 Ordered Ice Therapy [OM.PC] Routine Oth 08/09/17 11:40 Ordered Medication Orders Al Hydroxide/Mg Hydroxide (Mag-Al Plus) 30 ml PO Q4H PRN PRN Reason: indigestion Aspirin (Ecotrin) 325 mg PO BID [facility] Last Admin: 08/10/17 08:31 Dose: 325 mg Bisacodyl (Dulcolax) 10 mg RECTAL DAILY PRN PRN Reason: Constipation Diphenhydramine HCl (Benadryl) 25 - 50 mg PO Q6H PRN PRN Reason: Itching Docusate Sodium (Colace) 100 mg PO BID [facility] Last Admin: 08/10/17 08:31 Dose: 100 mg Admin: 08/09/17 20:12 Dose: 100 mg Famotidine (Pepcid) 40 mg IVPUSH ONARRIVE [facility] Last Admin: 08/09/17 08:16 Dose: 40 mg Famotidine (Pepcid) 40 mg PO DAILY [facility] Last Admin: 08/10/17 08:30 Dose: 40 mg Fentanyl (Sublimaze) 50 mcg IVPUSH Q5M PRN PRN Reason: Pain (severe 7-10) Stop: 08/10/17 10:39 Hydrochlorothiazide (Hydrochlorothiazide) 12.5 mg PO DAILY [facility] Last Admin: 08/10/17 08:31 Dose: 12.5 mg Hydromorphone HCl (Dilaudid) 0.5 - 1 mg IVPUSH Q3H PRN PRN Reason: Pain Cefazolin Sodium/Dextrose 2 gm (/ Premix) 50 mls @ 100 mls/hr IV ONCALL [facility] Ropivacaine 49.25 ml/Ketorolac Tromethamine 30 mg/Epinephrine HCl 0.5 mg/ Clonidine HCl 80 mcg/ Sodium Chloride 100 mls @ 50 mls/sec INJECT ASDIRECTED [facility] Lactated Ringer's (Ringers, Lactated) 1,000 mls @ 100 mls/hr IV ASDIRECTED [facility] Last Admin: 08/09/17 22:42 Dose: 100 mls/hr Infusion: 08/09/17 18:17 Dose: 100 mls/hr Admin: 08/09/17 08:17 Dose: 100 mls/hr Tranexamic Acid 4,000 mg/ (Sodium Chloride) 140 mls @ 600 mls/hr IV ASDIRECTED [facility] Ketorolac Tromethamine (Toradol) 30 mg IVPUSH ONARRIVE [facility] Last Admin: 08/09/17 08:17 Dose: 30 mg Lorazepam (Ativan) 0 mg IVPUSH Q4H PRN; Protocol PRN Reason: CIWAA Metoprolol Succinate (Toprol Xl) 50 mg PO DAILY [facility] Last Admin: 08/10/17 08:32 Dose: 50 mg Omeprazole (Omeprazole) 20 mg PO DAILY [facility] Last Admin: 08/10/17 08:30 Dose: 20 mg Ondansetron HCl (Zofran) 4 mg IV Q6HR PRN PRN Reason: NAUSEA/VOMITING Oxycodone HCl (Oxycontin) 10 mg PO ONARRIVE [facility] Last Admin: 08/09/17 08:15 Dose: 10 mg Oxycodone HCl (Oxycodone) 5 - 10 mg PO Q4H PRN PRN Reason: Pain Oxycodone HCl (Oxycontin) 10 mg PO Q12HR [facility] Last Admin: 08/10/17 08:31 Dose: 10 mg Admin: 08/09/17 20:14 Dose: 10 mg Oxycodone/Acetaminophen (Percocet 325-5 Mg) 1 - 2 tab PO Q4H PRN PRN Reason: Pain Scopolamine (Transderm-Scop) 1.5 mg TRDERM ONARRIVE [facility] Last Admin: 08/09/17 08:14 Dose: 1.5 mg - Assessment Assessment (Free Text/Narrative):: POD#1 R TKA acute posthemorrhagic anemia - Plan Plan (Free Text/Narrative):: DC IV fluids - saline lock IV DC woodall DC 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 CONTROL COORDINATOR - dilaudid IV prn breakthrough pain DC oxycodone - percocet 5/325 prn available ASA 325mg PO BID as DVT prophylaxis PT today dressing changed pt has wheeled walker or script has been written if pt does well with PT, pain is controlled, may d/ch to home this afternoon, more likely tomorrow for continued PT/gait stability d/ch medications written <Izzy Elliott R - Last Filed: 08/11/17 09:12> - Patient Data Vitals - Most Recent: Last Vital Signs Temp 98.3 F 08/11/17 08:00 Pulse 82 08/11/17 08:00 Resp 18 08/11/17 08:00 BP 140/80 08/11/17 08:00 Pulse Ox 95 08/11/17 08:00 I&O - Last 24 Hours: Intake & Output 08/10/17 08/11/17 08/11/17 22:59 06:59 14:59 Intake Total 500 600 Output Total 300 350 Balance 200 250 Lab Results Last 24 Hrs: Laboratory Results - last 24 hr 08/11/17 08/11/17 Range/Units 05:35 05:35 Hgb 10.2 L (12.0-16.0) g/dL Hct 31.6 L (36.0-46.0) % Sodium 137 (136-145) mmol/L Potassium 4.3 (3.5-5.1) mmol/L Chloride 103 (98-107) mmol/L Carbon Dioxide 30.8 (21.0-32.0) mmol/L BUN 19 H (7.0-18.0) mg/dL Creatinine 1.1 H (0.6-1.0) mg/dL Est Cr Clr Drug Dosing 42.00 mL/min Estimated GFR (MDRD) 48.6 ml/min Glucose 120 H (74-106) mg/dL Calcium 8.3 L (8.5-10.1) mg/dL Med Orders - Current: Current Medications Hydrocodone Bitart/Acetaminophen (Lithia 325-10 Mg) 1 - 2 tab PO Q4H PRN PRN Reason: Pain Last Admin: 08/11/17 04:52 Dose: 2 tab Al Hydroxide/Mg Hydroxide (Mag-Al Plus) 30 ml PO Q4H PRN PRN Reason: indigestion Aspirin (Ecotrin) 325 mg PO BID [facility] Last Admin: 08/10/17 23:20 Dose: 325 mg Bisacodyl (Dulcolax) 10 mg RECTAL DAILY PRN PRN Reason: Constipation Diphenhydramine HCl (Benadryl) 25 - 50 mg PO Q6H PRN PRN Reason: Itching Docusate Sodium (Colace) 100 mg PO BID [facility] Last Admin: 08/10/17 23:20 Dose: 100 mg Hydrochlorothiazide (Hydrochlorothiazide) 12.5 mg PO DAILY [facility] Last Admin: 08/10/17 08:31 Dose: 12.5 mg Hydromorphone HCl (Dilaudid) 0.5 - 1 mg IVPUSH Q3H PRN PRN Reason: Pain Lactated Ringer's (Ringers, Lactated) 1,000 mls @ 100 mls/hr IV ASDIRECTED [facility] Last Admin: 08/09/17 22:42 Dose: 100 mls/hr Lorazepam (Ativan) 0 mg IVPUSH Q4H PRN; Protocol PRN Reason: CIWAA Metoprolol Succinate (Toprol Xl) 50 mg PO DAILY [facility] Last Admin: 08/10/17 08:32 Dose: 50 mg Omeprazole (Omeprazole) 20 mg PO DAILY [facility] Last Admin: 08/10/17 08:30 Dose: 20 mg Ondansetron HCl (Zofran) 4 mg IVPUSH Q6H PRN PRN Reason: NAUSEA/VOMITING Sodium Chloride (Saline Flush) 10 ml FLUSH ASDIRECTED PRN PRN Reason: Keep Vein Open Sodium Chloride (Saline Flush) 2.5 ml FLUSH ASDIRECTED PRN PRN Reason: Keep Vein Open Discontinued Medications Cefazolin Sodium/Dextrose (Ancef) Confirm Administered Dose 2 gm IV .STK-MED ONE Stop: 08/09/17 08:49 Ephedrine Sulfate (Ephedrine Sulfate) Confirm Administered Dose 50 mg .ROUTE .STK-MED ONE Stop: 08/09/17 08:54 Famotidine (Pepcid) 40 mg IVPUSH ONARRIVE [facility] Last Admin: 08/09/17 08:16 Dose: 40 mg Famotidine (Pepcid) 40 mg PO DAILY [facility] Last Admin: 08/10/17 08:30 Dose: 40 mg Fentanyl (Sublimaze) Confirm Administered Dose 100 mcg .ROUTE .STK-MED ONE Stop: 08/09/17 08:50 Fentanyl (Sublimaze) 50 mcg IVPUSH Q5M PRN PRN Reason: Pain (severe 7-10) Stop: 08/10/17 10:39 Hydromorphone HCl (Dilaudid) 0 mg IVPUSH ONETIME ONE Stop: 08/09/17 10:40 Last Admin: 08/09/17 13:34 Dose: Not Given Hydromorphone HCl (Dilaudid Lumber Racker 6 Mg In Ns 30 Ml) 6 mg IV ASDIRECTED PRN; Protocol PRN Reason: Pain Stop: 08/10/17 08:00 Last Admin: 08/09/17 12:11 Dose: 6 mg Acetaminophen 1,000 mg/ Premix 100 mls @ 400 mls/hr IV ONARRIVE [facility] Last Admin: 08/09/17 08:15 Dose: 400 mls/hr Cefazolin Sodium/Dextrose 2 gm (/ Premix) 50 mls @ 100 mls/hr IV ONCALL [facility] Ropivacaine 49.25 ml/Ketorolac Tromethamine 30 mg/Epinephrine HCl 0.5 mg/ Clonidine HCl 80 mcg/ Sodium Chloride 100 mls @ 50 mls/sec INJECT ASDIRECTED [facility] Tranexamic Acid 4,000 mg/ (Sodium Chloride) 140 mls @ 600 mls/hr IV ASDIRECTED [facility] Acetaminophen 1,000 mg/ Premix 100 mls @ 400 mls/hr IV Q6H [facility] Stop: 08/10/17 01:14 Last Admin: 08/10/17 01:37 Dose: 400 mls/hr Cefazolin Sodium/Dextrose 2 gm (/ Premix) 50 mls @ 100 mls/hr IV Q8H [facility] Stop: 08/10/17 01:29 Last Admin: 08/10/17 01:35 Dose: 100 mls/hr Magnesium Sulfate 2 gm/ Premix 50 mls @ 50 mls/hr IV ONETIME ONE Stop: 08/09/17 16:12 Last Admin: 08/09/17 15:30 Dose: 50 mls/hr Ketorolac Tromethamine (Toradol) 30 mg IVPUSH ONARRIVE [facility] Last Admin: 08/09/17 08:17 Dose: 30 mg Ketorolac Tromethamine (Toradol) 15 mg IVPUSH Q6H [facility] Stop: 08/10/17 05:00 Last Admin: 08/10/17 05:11 Dose: 15 mg Midazolam HCl (Versed 1 Mg/Ml) Confirm Administered Dose 2 mg .ROUTE .STK-MED ONE Stop: 08/09/17 08:51 Ondansetron HCl (Zofran) Confirm Administered Dose 4 mg .ROUTE .STK-MED ONE Stop: 08/09/17 08:54 Ondansetron HCl (Zofran) 4 mg IV Q6HR PRN PRN Reason: NAUSEA/VOMITING Oxycodone HCl (Oxycontin) 10 mg PO ONARRIVE [facility] Last Admin: 08/09/17 08:15 Dose: 10 mg Oxycodone HCl (Oxycodone) 5 - 10 mg PO Q4H PRN PRN Reason: Pain Oxycodone HCl (Oxycontin) 10 mg PO Q12HR [facility] Last Admin: 08/10/17 08:31 Dose: 10 mg Oxycodone/Acetaminophen (Percocet 325-5 Mg) 1 - 2 tab PO Q4H PRN PRN Reason: Pain Last Admin: 08/10/17 15:04 Dose: 2 tab Potassium Chloride (Klor-Con M20) 40 meq PO ONETIME ONE Stop: 08/09/17 15:13 Last Admin: 08/09/17 15:29 Dose: 40 meq Propofol (Diprivan 20 Ml) Confirm Administered Dose 400 mg .ROUTE .STK-MED ONE Stop: 08/09/17 08:50 Propofol (Diprivan 20 Ml) Confirm Administered Dose 200 mg .ROUTE .STK-MED ONE Stop: 08/09/17 09:05 [facility] Admin: 08/09/17 08:14 Dose: 1.5 mg Tranexamic Acid (Cyklokapron) Confirm Administered Dose 4,000 mg .ROUTE .STK- MED ONE Stop: 08/09/17 08:52 - My Orders Last 24 Hours: Active Orders 24 hr Category Date Time Status Admission Status [Patient Status] [ADT] Routine ADT 08/10/17 13:00 Active Remove Woodall Catheter [Urinary Catheter Removal] [RC] Care 08/10/17 09:18 Active Per Unit Routine Dental Hygiene Professor Discontinue [Cardiac Monitoring Care 08/10/17 08:33 Active Discontinue] [RC] Click to Edit HEMOGLOBIN/HEMATOCRIT,HH [HEME] DAILY Lab 08/12/17 06:00 Ordered Acetaminophen/HYDROcodone [Lithia 325-10 MG] Med 08/10/17 16:25 Active 1 - 2 tab PO Q4H PRN Aspirin [Ecotrin] Med 08/10/17 09:00 Active 325 mg PO BID Hydrochlorothiazide Med 08/10/17 09:00 Active 12.5 mg PO DAILY Metoprolol Succinate [Toprol XL] Med 08/10/17 09:00 Active 50 mg PO DAILY Omeprazole Med 08/10/17 09:00 Active 20 mg PO DAILY Ondansetron [Zofran] Med 08/10/17 23:15 Active 4 mg IVPUSH Q6H PRN Sodium Chloride 0.9% [Saline Flush] Med 08/10/17 09:18 Active 10 ml FLUSH ASDIRECTED PRN Sodium Chloride 0.9% [Saline Flush] Med 08/10/17 09:18 Active 2.5 ml FLUSH ASDIRECTED PRN Convert IV to Saline Lock [OM.PC] Routine Oth 08/10/17 09:18 Ordered Medication Orders Hydrocodone Bitart/Acetaminophen (Lithia 325-10 Mg) 1 - 2 tab PO Q4H PRN PRN Reason: Pain Last Admin: 08/11/17 04:52 Dose: 2 tab Admin: 08/10/17 23:34 Dose: 2 tab Admin: 08/10/17 17:19 Dose: 2 tab Al Hydroxide/Mg Hydroxide (Mag-Al Plus) 30 ml PO Q4H PRN PRN Reason: indigestion Aspirin (Ecotrin) 325 mg PO BID [facility] Last Admin: 08/10/17 23:20 Dose: 325 mg Admin: 08/10/17 08:31 Dose: 325 mg Bisacodyl (Dulcolax) 10 mg RECTAL DAILY PRN PRN Reason: Constipation Diphenhydramine HCl (Benadryl) 25 - 50 mg PO Q6H PRN PRN Reason: Itching Docusate Sodium (Colace) 100 mg PO BID [facility] Last Admin: 08/10/17 23:20 Dose: 100 mg Admin: 08/10/17 08:31 Dose: 100 mg Admin: 08/09/17 20:12 Dose: 100 mg Hydrochlorothiazide (Hydrochlorothiazide) 12.5 mg PO DAILY [facility] Last Admin: 08/10/17 08:31 Dose: 12.5 mg Hydromorphone HCl (Dilaudid) 0.5 - 1 mg IVPUSH Q3H PRN PRN Reason: Pain Lactated Ringer's (Ringers, Lactated) 1,000 mls @ 100 mls/hr IV ASDIRECTED [facility] Last Admin: 08/09/17 22:42 Dose: 100 mls/hr Infusion: 08/09/17 18:17 Dose: 100 mls/hr Admin: 08/09/17 08:17 Dose: 100 mls/hr Lorazepam (Ativan) 0 mg IVPUSH Q4H PRN; Protocol PRN Reason: CIWAA Metoprolol Succinate (Toprol Xl) 50 mg PO DAILY [facility] Last Admin: 08/10/17 08:32 Dose: 50 mg Omeprazole (Omeprazole) 20 mg PO DAILY [facility] Last Admin: 08/10/17 08:30 Dose: 20 mg Ondansetron HCl (Zofran) 4 mg IVPUSH Q6H PRN PRN Reason: NAUSEA/VOMITING Sodium Chloride (Saline Flush) 10 ml FLUSH ASDIRECTED PRN PRN Reason: Keep Vein Open Sodium Chloride (Saline Flush) 2.5 ml FLUSH ASDIRECTED PRN PRN Reason: Keep Vein Open - Plan Plan (Free Text/Narrative):: 08/11/17 Late entry patient was seen and examined at 1700 on 08/10/17. Had some confusion during the day, but improved now. Pain medications adjusted and scopalamine patch removed. Progressing well with PT. pain controlled. Hgb stable. VSS, afeb Dressing dry/intact. No calf TTP. NVI. POD #1 1. continue to monitor confusion, medicine is following 2. continue PT and mobilization 3. plan d/c home tomorrow if patient improved. [email or web address]
--- NOTE | 2017-08-10 09:33 | OR ---
SURGEON: Izzy Elliott MD DATE OF PROCEDURE: 08/09/2017 PREOPERATIVE DIAGNOSIS: Degenerative joint disease, right knee, tricompartmental. POSTOPERATIVE DIAGNOSIS: Degenerative joint disease, right knee, tricompartmental. PROCEDURE: Right total knee arthroplasty using standard instrumentation. RASCHEL KNITTING MACHINE OPERATOR: Carli Jang PA-C ANESTHESIA: Spinal with sedation. ESTIMATED BLOOD LOSS: 50 mL. TOURNIQUET TIME: 36 minutes. COMPLICATIONS: None. DVT PROPHYLAXIS: PAS boot and OXANA hose to the nonoperative leg. IMPLANTS USED: Elliott Persona femoral component size 8 standard (LPS), tibial component size E, 10 mm all-polyethylene articular surface, and 32 mm all-polyethylene patella. 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 Osteophyte formation was also noted. She had complete eburnation of the bone along the medial femoral condyle. No significant synovitis was noted. BRIEF HISTORY: Salma is a 72-year-old female who has had complaint of progressive right knee pain. X-ray showed degenerative changes. She had failed conservative treatment. Due to her lack of response to conservative treatment, I did recommend surgical intervention. The risks and goals of procedure were discussed with the patient and were documented preoperatively. She agreed to proceed. DESCRIPTION OF PROCEDURE: The patient was properly identified and brought to the operating room. The patient was then transferred from the operating room cart and placed on the operating table in a supine position. Anesthesia was administered by the anesthesia staff. After adequate anesthesia was obtained, a well-padded tourniquet was applied to the surgical lower extremity. Purdy catheter was placed. The lower extremity was then prepped in standard fashion using ChloraPrep solution. It was then sterilely draped. A time-out was performed to ensure correct site and procedure. Preoperative antibiotics were given along with one gram tranexamic acid IV. The surgical site had been marked preoperatively. An Esmarch was used to exsanguinate the right lower extremity and the tourniquet was inflated. An incision was made over the anterior aspect of the knee. The subcutaneous tissues were dissected down to the level of the fascia. A medial parapatellar approach to the knee was made. A portion of the infrapatellar fat pad was then excised. The distal femur was then exposed. The step reamer was used to gain access to the intramedullary canal. This was placed in 6 degrees of valgus. Pins were placed. The distal femoral cutting block was placed and the distal femoral cut was made. Instrumentation was then removed. The femur was then sized. Both Whitesides' line and the epicondylar axis were then marked with electrocautery. The 4-in-1 cutting block was placed. This was placed in a slightly externally rotated position, which corresponded well with the previously drawn lines. The cutting guide was then pinned into position. An Tyrone wing guide was used to check the depth of resection of our anterior condylar cut and it was felt that no notching would occur. The anterior condylar cut was then made followed by the posterior condylar cut. Both the posterior chamfer and anterior chamfer cuts were then made. The cutting block was then removed along with the excess bony remnants. We then turned our attention to the tibia. The anterior cruciate ligament and posterior cruciate ligament were released and a posterior cruciate ligament retractor was placed to allow the tibia to be pulled anteriorly. The tibial extra-medullary guide was then positioned. We chose to take approximately 2 mm off the lowest side. The proximal tibia cutting guide was then placed and screwed into position. The proximal tibial resection was then made with care being taken to protect the patellar tendon. The bony resection was then removed. The remainder of the medial and lateral meniscus were then excised. Care was taken to protect the popliteus tendon. The tibia was then sized to the appropriate size. The distal femur was then elevated. The posterior capsule was stripped off the distal femur both medially and laterally. The posterior capsule along with the medial and lateral gutters were then injected with a standard mixture consisting of clonidine, epinephrine, Toradol, and ropivacaine, unless any allergies were found preoperatively. The femoral component was then placed onto the distal femur in a slightly lateral position. This fit the femur well. A box cut was then made without difficulty. This was then removed. The tibial trial along with the polyethylene liner was then placed. The knee came easily into full extension and was stable to varus and valgus stressing both in full extension and flexion. Any additional releases were performed at this time. We then returned our attention to the patella. The patella was everted and towel clamps were used to hold the patella in position. It was resected to a 15 millimeter thickness. It was then sized to the appropriate size. It was prepared in the usual fashion after placing the predetermined size clamps. This was placed in a slightly superior and medial position. The clamp was then removed. The patellar trial button was placed. The knee was taken through a range of motion using the no-touch technique. The patella tracked centrally. A drop nahomi was then placed to check alignment. All instruments were then removed from the knee. The tibial sizer was then placed on the tibia. The tibia was prepared in the usual fashion using the reamer and broach. This was then removed. All bony surfaces were copiously irrigated with Pulsavac solution. They were then suctioned dry. Cement was prepared on the back table in the usual manner. Antibiotic impregnated cement was used if the patient was diabetic. Once it was prepared, the bone ends were again suctioned dry. The tibia was cemented into place first. This was malleted into position. Excess cement was then cleared. The femur was then placed in a similar manner. We placed the polyethylene trial into place and the knee was brought into full extension. An axial load was placed while keeping the knee in full extension. The patella button was also cemented into position and the clamp was used to hold this in place as the cement was allowed to cure. The wound was copiously irrigated with saline using a Pulsavac investment officer. Following this, 1 gram of tranexamic acid was applied topically to the wound during the curing process. After we had adequate curing of the cement, the knee was again taken through a range of motion. The size of the polyethylene was then determined. The polyethylene trial was then removed. The tibial tray was suctioned to make sure there was no remaining soft tissue or cement. Excess cement was cleared from around the edges of the prosthesis as well. The tourniquet was then deflated. We were able to observe for any excess bleeding and none was noted. Electrocautery was used to maintain hemostasis. An additional gram of tranexamic acid was given IV. The retractors were again placed and the predetermined polyethylene was then placed. This was locked into position without difficulty. The knee was again taken through a range of motion with no change from the prior exam. The fascial layer was closed with Number One Vicryl. The subcutaneous tissues were closed with 2-0 Vicryl. The skin was closed with jolynn. Xeroform gauze was placed over the wound and a bulky dressing was applied. The patient was then awakened from anesthesia and transferred back to the operating room cart. They were brought to the recovery room in stable condition. All needle and sponge counts were correct. VI / ASHIA /[id number]
[2017-08-10] MEDS: Acetaminophen/oxyCODONE 325-5 MG Tab PO PRN ×2 (09:41→15:04)
--- NOTE | 2017-08-10 16:25 | PCM.SN ---
- Free Text/Narrative Note: pt had some confusion today - minimized narcotic use, discontinued oxycontin, removed scopolamine patch also reports moderate daily alcohol use at home so this may contribute to her confusion dressing was changed to aquacel this morning, nurses have noticed dressing saturation did well with PT, ambulated and was able to complete stairs dressing saturated with sanguinous drainage continues to be nvi to RLE continue to minimize narcotic use - will switch to [place] 10/325 dressing changed to fluffs, ABDs, ROCK for compression overnight reinforce dressing prn overnight will re-eval for aquacel placement tomorrow will keep overnight for PT and monitoring post-op confusion if no improvement with minimal narcotics, will consider UA in AM disposition: likely home tomorrow
[2017-08-10] MEDS: Acetaminophen/HYDROcodone 325-10 MG Tab PO PRN ×2 (17:19→23:34)
[2017-08-10] MEDS ORDERED: Ondansetron 4 MG/2 ML SDV IVPUSH PRN (23:15)
[2017-08-11] MEDS: Acetaminophen/HYDROcodone 325-10 MG Tab PO PRN ×2 (04:52→09:19)
[2017-08-11] MEDS: Omeprazole 20 MG Cap.CR PO SCH (09:19)
[2017-08-11] MEDS: Hydrochlorothiazide 12.5 MG Cap PO SCH (09:21)
[2017-08-11] MEDS: Metoprolol Succinate 50 MG Tab.ER PO SCH (09:21)
[2017-08-11] MEDS: Aspirin 325 MG Tab.EC PO SCH (09:21)
[2017-08-11] MEDS: Docusate Sodium 100 MG Cap PO SCH (09:22)
--- NOTE | 2017-08-11 09:32 | PCM.SURGPN ---
- General Info Date of Service: 08/11/17 Date of Surgery/Procedure: 08/09/17 POD#: 2 Functional Status: Reports: Pain Controlled, Tolerating Diet, Ambulating, Urinating - Review of Systems General: Reports: No Symptoms Pulmonary: Reports: No Symptoms. Denies: Shortness of Breath Cardiovascular: Reports: No Symptoms. Denies: Chest Pain Gastrointestinal: Reports: No Symptoms. Denies: Nausea Systems Review Comment:: pt up to chair for breakfast reports feeling better, less confused, more like herself pain still well controlled with minimal narcotics did well with PT yesterday is planning on taking her home this afternoon no specific concerns - Patient Data Vitals - Most Recent: Last Vital Signs Temp 98.3 F 08/11/17 08:00 Pulse 82 08/11/17 08:00 Resp 18 08/11/17 08:00 BP 140/80 08/11/17 08:00 Pulse Ox 95 08/11/17 08:00 Weight - Most Recent: 90.718 kg I&O - Last 24 Hours: Intake & Output 08/10/17 08/11/17 08/11/17 22:59 06:59 14:59 Intake Total 500 600 Output Total 300 350 Balance 200 250 Lab Results Last 24 Hrs: Laboratory Results - last 24 hr 08/11/17 08/11/17 Range/Units 05:35 05:35 Hgb 10.2 L (12.0-16.0) g/dL Hct 31.6 L (36.0-46.0) % Sodium 137 (136-145) mmol/L Potassium 4.3 (3.5-5.1) mmol/L Chloride 103 (98-107) mmol/L Carbon Dioxide 30.8 (21.0-32.0) mmol/L BUN 19 H (7.0-18.0) mg/dL Creatinine 1.1 H (0.6-1.0) mg/dL Est Cr Clr Drug Dosing 42.00 mL/min Estimated GFR (MDRD) 48.6 ml/min Glucose 120 H (74-106) mg/dL Calcium 8.3 L (8.5-10.1) mg/dL Med Orders - Current: Current Medications Hydrocodone Bitart/Acetaminophen ([place] 325-10 Mg) 1 - 2 tab PO Q4H PRN PRN Reason: Pain Last Admin: 08/11/17 04:52 Dose: 2 tab Al Hydroxide/Mg Hydroxide (Mag-Al Plus) 30 ml PO Q4H PRN PRN Reason: indigestion Aspirin (Ecotrin) 325 mg PO BID [facility] Last Admin: 08/10/17 23:20 Dose: 325 mg Bisacodyl (Dulcolax) 10 mg RECTAL DAILY PRN PRN Reason: Constipation Diphenhydramine HCl (Benadryl) 25 - 50 mg PO Q6H PRN PRN Reason: Itching Docusate Sodium (Colace) 100 mg PO BID [facility] Last Admin: 08/10/17 23:20 Dose: 100 mg Hydrochlorothiazide (Hydrochlorothiazide) 12.5 mg PO DAILY [facility] Last Admin: 08/10/17 08:31 Dose: 12.5 mg Hydromorphone HCl (Dilaudid) 0.5 - 1 mg IVPUSH Q3H PRN PRN Reason: Pain Lactated Ringer's (Ringers, Lactated) 1,000 mls @ 100 mls/hr IV ASDIRECTED [facility] Last Admin: 08/09/17 22:42 Dose: 100 mls/hr Lorazepam (Ativan) 0 mg IVPUSH Q4H PRN; Protocol PRN Reason: CIWAA Metoprolol Succinate (Toprol Xl) 50 mg PO DAILY [facility] Last Admin: 08/10/17 08:32 Dose: 50 mg Omeprazole (Omeprazole) 20 mg PO DAILY [facility] Last Admin: 08/10/17 08:30 Dose: 20 mg Ondansetron HCl (Zofran) 4 mg IVPUSH Q6H PRN PRN Reason: NAUSEA/VOMITING Sodium Chloride (Saline Flush) 10 ml FLUSH ASDIRECTED PRN PRN Reason: Keep Vein Open Sodium Chloride (Saline Flush) 2.5 ml FLUSH ASDIRECTED PRN PRN Reason: Keep Vein Open Discontinued Medications Cefazolin Sodium/Dextrose (Ancef) Confirm Administered Dose 2 gm IV .STK-MED ONE Stop: 08/09/17 08:49 Ephedrine Sulfate (Ephedrine Sulfate) Confirm Administered Dose 50 mg .ROUTE .STK-MED ONE Stop: 08/09/17 08:54 Famotidine (Pepcid) 40 mg IVPUSH ONARRIVE [facility] Last Admin: 08/09/17 08:16 Dose: 40 mg Famotidine (Pepcid) 40 mg PO DAILY [facility] Last Admin: 08/10/17 08:30 Dose: 40 mg Fentanyl (Sublimaze) Confirm Administered Dose 100 mcg .ROUTE .STK-MED ONE Stop: 08/09/17 08:50 Fentanyl (Sublimaze) 50 mcg IVPUSH Q5M PRN PRN Reason: Pain (severe 7-10) Stop: 08/10/17 10:39 Hydromorphone HCl (Dilaudid) 0 mg IVPUSH ONETIME ONE Stop: 08/09/17 10:40 Last Admin: 08/09/17 13:34 Dose: Not Given Hydromorphone HCl (Dilaudid Senior Mechanical Design Engineer 6 Mg In Ns 30 Ml) 6 mg IV ASDIRECTED PRN; Protocol PRN Reason: Pain Stop: 08/10/17 08:00 Last Admin: 08/09/17 12:11 Dose: 6 mg Acetaminophen 1,000 mg/ Premix 100 mls @ 400 mls/hr IV ONARRIVE [facility] Last Admin: 08/09/17 08:15 Dose: 400 mls/hr Cefazolin Sodium/Dextrose 2 gm (/ Premix) 50 mls @ 100 mls/hr IV ONCALL [facility] Ropivacaine 49.25 ml/Ketorolac Tromethamine 30 mg/Epinephrine HCl 0.5 mg/ Clonidine HCl 80 mcg/ Sodium Chloride 100 mls @ 50 mls/sec INJECT ASDIRECTED [facility] Tranexamic Acid 4,000 mg/ (Sodium Chloride) 140 mls @ 600 mls/hr IV ASDIRECTED [facility] Acetaminophen 1,000 mg/ Premix 100 mls @ 400 mls/hr IV Q6H [facility] Stop: 08/10/17 01:14 Last Admin: 08/10/17 01:37 Dose: 400 mls/hr Cefazolin Sodium/Dextrose 2 gm (/ Premix) 50 mls @ 100 mls/hr IV Q8H [facility] Stop: 08/10/17 01:29 Last Admin: 08/10/17 01:35 Dose: 100 mls/hr Magnesium Sulfate 2 gm/ Premix 50 mls @ 50 mls/hr IV ONETIME ONE Stop: 08/09/17 16:12 Last Admin: 08/09/17 15:30 Dose: 50 mls/hr Ketorolac Tromethamine (Toradol) 30 mg IVPUSH ONARRIVE [facility] Last Admin: 08/09/17 08:17 Dose: 30 mg Ketorolac Tromethamine (Toradol) 15 mg IVPUSH Q6H [facility] Stop: 08/10/17 05:00 Last Admin: 08/10/17 05:11 Dose: 15 mg Midazolam HCl (Versed 1 Mg/Ml) Confirm Administered Dose 2 mg .ROUTE .STK-MED ONE Stop: 08/09/17 08:51 Ondansetron HCl (Zofran) Confirm Administered Dose 4 mg .ROUTE .STK-MED ONE Stop: 08/09/17 08:54 Ondansetron HCl (Zofran) 4 mg IV Q6HR PRN PRN Reason: NAUSEA/VOMITING Oxycodone HCl (Oxycontin) 10 mg PO ONARRIVE [facility] Last Admin: 08/09/17 08:15 Dose: 10 mg Oxycodone HCl (Oxycodone) 5 - 10 mg PO Q4H PRN PRN Reason: Pain Oxycodone HCl (Oxycontin) 10 mg PO Q12HR [facility] Last Admin: 08/10/17 08:31 Dose: 10 mg Oxycodone/Acetaminophen (Percocet 325-5 Mg) 1 - 2 tab PO Q4H PRN PRN Reason: Pain Last Admin: 08/10/17 15:04 Dose: 2 tab Potassium Chloride (Klor-Con M20) 40 meq PO ONETIME ONE Stop: 08/09/17 15:13 Last Admin: 08/09/17 15:29 Dose: 40 meq Propofol (Diprivan 20 Ml) Confirm Administered Dose 400 mg .ROUTE .STK-MED ONE Stop: 08/09/17 08:50 Propofol (Diprivan 20 Ml) Confirm Administered Dose 200 mg .ROUTE .STK-MED ONE Stop: 08/09/17 09:05 Scopolamine (Transderm-Scop) 1.5 mg TRDERM ONARRIVE [facility] Last Admin: 08/09/17 08:14 Dose: 1.5 mg Tranexamic Acid (Cyklokapron) Confirm Administered Dose 4,000 mg .ROUTE .STK- MED ONE Stop: 08/09/17 08:52 - Exam Wound/Incisions: Dressing Dry and Intact. No: Drainage General: Alert, Oriented Cardiovascular: Regular Rate, Regular Rhythm Extremities: No Pedal Edema, Other (exam RLE bulky dressing intact, no drainage noted, at/ehl/gastroc 5/5, dp 2+, sensation intact distally) Physical Findings Comment:: vss, afeb hgb 10.2 - Problem List Review Problem List Initiated/Reviewed/Updated: Yes - My Orders Last 24 Hours: Active Orders 24 hr Category Date Time Status Admission Status [Patient Status] [ADT] Routine ADT 08/10/17 13:00 Active Ready for Discharge [RC] PER UNIT ROUTINE Care 08/11/17 09:28 Ordered Remove Purdy Catheter [Urinary Catheter Removal] [RC] Care 08/10/17 09:18 Active Per Unit Routine Welfare Project Manager Discontinue [Cardiac Monitoring Care 08/10/17 08:33 Active Discontinue] [] Click to Edit HEMOGLOBIN/HEMATOCRIT,HH [HEME] DAILY Lab 08/12/17 06:00 Ordered Acetaminophen/HYDROcodone [[place] 325-10 MG] Med 08/10/17 16:25 Active 1 - 2 tab PO Q4H PRN Aspirin [Ecotrin] Med 08/10/17 09:00 Active 325 mg PO BID Hydrochlorothiazide Med 08/10/17 09:00 Active 12.5 mg PO DAILY Metoprolol Succinate [Toprol XL] Med 08/10/17 09:00 Active 50 mg PO DAILY Omeprazole Med 08/10/17 09:00 Active 20 mg PO DAILY Ondansetron [Zofran] Med 08/10/17 23:15 Active 4 mg IVPUSH Q6H PRN Sodium Chloride 0.9% [Saline Flush] Med 08/10/17 09:18 Active 10 ml FLUSH ASDIRECTED PRN Sodium Chloride 0.9% [Saline Flush] Med 08/10/17 09:18 Active 2.5 ml FLUSH ASDIRECTED PRN Convert IV to Saline Lock [OM.PC] Routine Oth 08/10/17 09:18 Ordered Medication Orders Hydrocodone Bitart/Acetaminophen ([place] 325-10 Mg) 1 - 2 tab PO Q4H PRN PRN Reason: Pain Last Admin: 08/11/17 04:52 Dose: 2 tab Admin: 08/10/17 23:34 Dose: 2 tab Admin: 08/10/17 17:19 Dose: 2 tab Al Hydroxide/Mg Hydroxide (Mag-Al Plus) 30 ml PO Q4H PRN PRN Reason: indigestion Aspirin (Ecotrin) 325 mg PO BID [facility] Last Admin: 08/10/17 23:20 Dose: 325 mg Admin: 08/10/17 08:31 Dose: 325 mg Bisacodyl (Dulcolax) 10 mg RECTAL DAILY PRN PRN Reason: Constipation Diphenhydramine HCl (Benadryl) 25 - 50 mg PO Q6H PRN PRN Reason: Itching Docusate Sodium (Colace) 100 mg PO BID [facility] Last Admin: 08/10/17 23:20 Dose: 100 mg Admin: 08/10/17 08:31 Dose: 100 mg Admin: 08/09/17 20:12 Dose: 100 mg Hydrochlorothiazide (Hydrochlorothiazide) 12.5 mg PO DAILY [facility] Last Admin: 08/10/17 08:31 Dose: 12.5 mg Hydromorphone HCl (Dilaudid) 0.5 - 1 mg IVPUSH Q3H PRN PRN Reason: Pain Lactated Ringer's (Ringers, Lactated) 1,000 mls @ 100 mls/hr IV ASDIRECTED [facility] Last Admin: 08/09/17 22:42 Dose: 100 mls/hr Infusion: 08/09/17 18:17 Dose: 100 mls/hr Admin: 08/09/17 08:17 Dose: 100 mls/hr Lorazepam (Ativan) 0 mg IVPUSH Q4H PRN; Protocol PRN Reason: CIWAA Metoprolol Succinate (Toprol Xl) 50 mg PO DAILY [facility] Last Admin: 08/10/17 08:32 Dose: 50 mg Omeprazole (Omeprazole) 20 mg PO DAILY [facility] Last Admin: 08/10/17 08:30 Dose: 20 mg Ondansetron HCl (Zofran) 4 mg IVPUSH Q6H PRN PRN Reason: NAUSEA/VOMITING Sodium Chloride (Saline Flush) 10 ml FLUSH ASDIRECTED PRN PRN Reason: Keep Vein Open Sodium Chloride (Saline Flush) 2.5 ml FLUSH ASDIRECTED PRN PRN Reason: Keep Vein Open - Assessment Assessment (Free Text/Narrative):: POD#2 R TKA acute posthemorrhagic anemia - Plan Plan (Free Text/Narrative):: continue PT/pain management change dressing to Aquacel prior to discharge d/ch to home d/ch meds written d/ch summary #[id number]
--- NOTE | 2017-08-12 12:10 | DISCH ---
DATE OF DISCHARGE: 08/11/2017 PRIMARY CARE PHYSICIAN: Viviane Patton NP ADMITTING DIAGNOSES: Degenerative joint disease, right knee, tricompartmental. OTHER MEDICAL DIAGNOSES: 1. Hypertension. 2. PVCs. 3. Daily alcohol use. DISCHARGE DIAGNOSES: 1. Degenerative joint disease, right knee, tricompartmental. 2. Hypertension. 3. PVCs. 4. Daily alcohol use. 5. Acute posthemorrhagic anemia. BRIEF HISTORY: Salma is a 72-year-old female, who has had progressive complaints of right knee pain. She has tried and failed conservative treatment. At that time, surgical treatment was recommended. On August 09, 2017, the patient underwent a right total knee arthroplasty using patient-specific instrumentation done by Dr. Izzy Elliott. This was under spinal anesthesia with sedation. Estimated blood loss was 50 mL. Tourniquet time was 36 minutes. There were no known complications. Upon completion of the procedure, the patient was transferred to the PACU and subsequently to [facility] for postoperative care. HOSPITAL COURSE: Postoperatively, the patient did well. She received two doses of Ancef postoperatively for a total 24 hours of antibiotic coverage. Physical Therapy followed through her hospital stay. The Hospitalist Service followed her through her hospital stay for management of her medical comorbidities, aspirin 325 mg by mouth twice daily was started on postoperative day #1 as DVT prophylaxis. Her pain was controlled with combination of oral and IV pain medication; however, she was quite confused. This resolved with minimizing her narcotic use. Her pain continues to be well controlled. Her vital signs have been stable. She has been afebrile. Her hemoglobin on the morning of August 11 was 10.2. She is ambulating well with a wheeled walker. She feels comfortable with discharge to home. DISCHARGE MEDICATIONS: 1. [place] 10/325. 2. Colace 100 mg. 3. Aspirin 325 mg. DISCHARGE INSTRUCTIONS: 1. Follow up in clinic in 14 days from the date of procedure. This appointment has been made for the patient. 2. Outpatient physical therapy 2 to 3 times per week for 4 to 6 weeks. 3. Polar Care to the right knee as needed. 4. She is to change her dressing over the weekend at home. An Aquacel dressing has been provided to her. 5. She may not drive for minimum of four weeks, status post right total knee arthroplasty. Should she have questions or concerns prior to followup, she has been advised to return to clinic or call. For complete medication reconciliation and discharge instructions, please refer back to the patient's EHR. OLLIE ANG /[id number] MTDD
== END 2017-08-11 12:10 | disposition home or self-care (01) ==
LOC: MW.SDS 07:49 → MW.MS 13:24 → MW.SDS 08-10 13:00
PROVIDERS: ADMIT Orthopaedic Surgery; ATTEND Orthopaedic Surgery
DX: M17.11 Unilateral primary osteoarthritis, right knee (principal); M94.261 Chondromalacia, right knee; I10 Essential (primary) hypertension; I49.3 Ventricular premature depolarization; I51.7 Cardiomegaly; K21.9 Gastro-esophageal reflux disease without esophagitis; E66.9 Obesity, unspecified; Z79.1 Long term (current) use of non-steroidal anti-inflammatories (NSAID); Z79.899 Other long term (current) drug therapy; Z88.7 Allergy status to serum and vaccine; Z87.891 Personal history of nicotine dependence
CPT/HCPCS: 27447; 36415; 73560; 80048; 83735; 85014; 85018; 85025; 86850; 86900; 86901; 88305; 88311; 97110; 97116; 97161; 97530; A9270; C1776; G0378; J0171; J0690; J0735; J1170; J1885; J2250; J2405; J2795; J3010; J3475; J7050; J7120; 01402; J2704